=== PATIENT | female | born 1970 | race Caucasian/White ===

== ENCOUNTER 2016-06-25 05:25 | Inpatient (IN) | payer OTHER ==
[2016-06-24 12:12] LABS: ADD SCAN DIFF NO
[2016-06-24 12:20] LABS: ABNORMAL IP MESSAGE 1; BASOPHIL # 0.1 10^3/ul (0.0-0.1); BASOPHILS % 0.9 % (0.0-2.0); EOSINOPHILS % 0.5 % (0.0-7.0); HEMATOCRIT 24.8 % (37.0-47.0); LYMPHOCYTES # 0.8 10^3/ul (0.8-2.9); LYMPHOCYTES % 10.3 % (15.0-51.0); MEAN CORPUSCULAR HEMOGLOBIN 20.3 pg (29.0-33.0); MEAN CORPUSCULAR HGB CONC 28.2 g/dl (32.0-37.0); MEAN CORPUSCULAR VOLUME 71.9 fl (82.0-101.0); MEAN PLATELET VOLUME 10.9 fl (7.4-10.4); MONOCYTE # 0.3 10^3/ul (0.3-0.9); MONOCYTES % 4.2 % (0.0-11.0); NEUTROPHIL # 6.4 10^3/ul (1.6-7.5); NEUTROPHILS % 83.8 % (39.0-77.0); PLATELET COUNT 382 10^3/UL (140-415); RED BLOOD COUNT 3.45 10^6/ul (4.20-5.40); RED CELL DISTRIBUTION WIDTH 26.1 % (11.5-14.5); WHITE BLOOD COUNT 7.7 10^3/ul (4.8-10.8)
[2016-06-24 12:21] LABS: ADD UMIC NO; URINE BILIRUBIN (Dip) NEGATIVE (NEGATIVE); URINE BLOOD (Dip) NEGATIVE (NEGATIVE); URINE COLOR LT. YELLOW (YELLOW); URINE GLUCOSE (Dip) NEGATIVE (NEGATIVE); URINE KETONES (Dip) NEGATIVE (NEGATIVE); URINE LEUKOCYTE ESTERASE (Dip) NEGATIVE (NEGATIVE); URINE NITRITE (Dip) NEGATIVE (NEGATIVE); URINE TOTAL PROTEIN (Dip) NEGATIVE (NEGATIVE); URINE UROBILINOGEN (Dip) 0.2 E.U./dL (0.1-1.0)
[2016-06-24 12:28] LABS: ALBUMIN 3.7 g/dl (3.3-4.9); POTASSIUM 3.6 mmol/L (3.5-5.1)
[2016-06-24 12:30] LABS: CREATININE 0.52 mg/dl (0.44-1.00)
[2016-06-24 12:31] LABS: ALBUMIN/GLOBULIN RATIO 1.19; TOTAL PROTEIN 6.8 g/dl (6.1-8.1)
[2016-06-24 12:32] LABS: CALCIUM 8.4 mg/dl (8.4-10.2)
[2016-06-24 12:42] LABS: INR 0.91; PROTIME 12.3 Sec (12.2-14.2)
[2016-06-24 13:15] LABS: PARTIAL THROMBOPLASTIN TIME 27.2 Sec (25.0-35.0)
[2016-06-24 17:34] VITALS: BMI 22.2
[2016-06-25] VITALS (23 sets, daily range): BP systolic 102–154; BP diastolic 59–95; PULSE 64–94; RESP 8–27; Ht 160 cm; Wt 55.6 kg
[~2016-06-25] VITALS: Ht 160 cm; Wt 55.6 kg
[2016-06-25] MEDS ORDERED: D5-NS + KCL 20 MEQ 1,000 ML IV SCH (05:30)
[2016-06-25] MEDS ORDERED: metroNIDAZOLE 500 MG/NS (PMX) 100 ML IVPB ONE (05:30)
[2016-06-25] MEDS ORDERED: CEFAZOLIN 2 GM/50 ML (PMX) 50 ML IVPB ONE (06:00)
[2016-06-25] MEDS ORDERED: ROCURONIUM 50 MG INJ ONE ×2 (07:00→12:49)
[2016-06-25] MEDS ORDERED: THROMBIN 5000 UNIT VIAL ONE (07:06)
[2016-06-25] MEDS ORDERED: METHYLENE BLUE 10 MG/ML VIAL ONE (07:06)
[2016-06-25] MEDS ORDERED: FERR325C PO (07:28)
--- NOTE | 2016-06-25 07:35 | HPN ---
Date/Time of Note Date/Time of Note DATE: 06/25/16 TIME: 07:34 Interval H&P Admission Note Pt. seen H&P reviewed: No system changes KARLOS CHANCE MD Jun 25, 2016 07:35
[2016-06-25] MEDS ORDERED: MIDAZOLAM 1 MG/ML 2 ML INJ ONE (07:53)
[2016-06-25] MEDS ORDERED: morphine SULFATE/PF (10 MG/10 ML) INJ ONE (07:54)
[2016-06-25] MEDS ORDERED: VASOPRESSIN 20 UNITS INJ ONE (09:14)
[2016-06-25] MEDS ORDERED: NALOXONE (0.4 MG/ML) INJ IV PRN (09:30)
[2016-06-25] MEDS ORDERED: METOCLOPRAMIDE 10 MG INJ IV PRN (09:30)
[2016-06-25] MEDS ORDERED: FENTAnyl 50 MCG/ML VIAL IV PRN (09:30)
[2016-06-25] MEDS ORDERED: MEPERIDINE 25 MG INJ IV PRN (09:30)
[2016-06-25] MEDS ORDERED: ONDANSETRON 4 MG INJ IV PRN ×2 (09:30→20:00)
[2016-06-25] MEDS ORDERED: PROPOFOL 20 ML ONE (12:49)
[2016-06-25] MEDS ORDERED: ONDANSETRON 4 MG INJ ONE ×2 (12:49→13:29)
[2016-06-25] MEDS ORDERED: GLYCOPYRROLATE 0.4 MG INJ ONE (12:49)
[2016-06-25] MEDS ORDERED: LIDOCAINE 2% (SDV) 5 ML INJ ONE (12:49)
[2016-06-25] MEDS ORDERED: CEFAZOLIN 1 GM INJ ONE (12:50)
[2016-06-25] MEDS ORDERED: NEOSTIGMINE 3 MG/3 ML SYRINGE ONE (12:50)
[2016-06-25] MEDS ORDERED: DIPHENHYDRAMINE 50 MG INJ ONE (13:29)
[2016-06-25 13:50] LABS: ADD UMIC YES; URINE BILIRUBIN (Dip) NEGATIVE (NEGATIVE); URINE BLOOD (Dip) NEGATIVE (NEGATIVE); URINE COLOR YELLOW (YELLOW); URINE GLUCOSE (Dip) NEGATIVE (NEGATIVE); URINE KETONES (Dip) NEGATIVE (NEGATIVE); URINE LEUKOCYTE ESTERASE (Dip) NEGATIVE (NEGATIVE); URINE NITRITE (Dip) NEGATIVE (NEGATIVE); URINE TOTAL PROTEIN (Dip) 2+ (NEGATIVE); URINE UROBILINOGEN (Dip) 1.0 E.U./dL (0.1-1.0)
[2016-06-25 14:07] LABS: BACTERIA,URINE MODERATE; MUCUS,URINE FEW
[2016-06-25 14:13] LABS: ADD SCAN DIFF NO
[2016-06-25 14:16] LABS: ABNORMAL IP MESSAGE 1; BASOPHILS % 0.3 % (0.0-2.0); EOSINOPHILS % 0.1 % (0.0-7.0); HEMATOCRIT 27.3 % (37.0-47.0); HEMOGLOBIN 8.3 g/dl (12.0-16.0); LYMPHOCYTES # 0.7 10^3/ul (0.8-2.9); LYMPHOCYTES % 5.5 % (15.0-51.0); MEAN CORPUSCULAR HEMOGLOBIN 23.9 pg (29.0-33.0); MEAN CORPUSCULAR HGB CONC 30.4 g/dl (32.0-37.0); MEAN CORPUSCULAR VOLUME 78.4 fl (82.0-101.0); MEAN PLATELET VOLUME 9.6 fl (7.4-10.4); MONOCYTE # 0.4 10^3/ul (0.3-0.9); MONOCYTES % 3.5 % (0.0-11.0); NEUTROPHIL # 10.8 10^3/ul (1.6-7.5); NEUTROPHILS % 89.9 % (39.0-77.0); PLATELET COUNT 266 10^3/UL (140-415); RED BLOOD COUNT 3.48 10^6/ul (4.20-5.40); RED CELL DISTRIBUTION WIDTH 26.5 % (11.5-14.5)
[2016-06-25 14:28] LABS: ALBUMIN/GLOBULIN RATIO 1.08
[2016-06-25 14:30] LABS: INR 1.08; PT RATIO 1.1
[2016-06-25 14:41] LABS: ALBUMIN 2.6 g/dl (3.3-4.9); BILIRUBIN,INDIRECT 0.4 mg/dl (0-1.1); BILIRUBIN,TOTAL 0.4 mg/dl (0.2-1.3); CALCIUM 7.6 mg/dl (8.4-10.2); CREATININE 0.61 mg/dl (0.44-1.00); POTASSIUM 3.4 mmol/L (3.5-5.1)
[2016-06-25] MEDS: DIPHENHYDRAMINE 50 MG INJ IV PRN ×2 (15:04→16:28)
[2016-06-25] MEDS ORDERED: [UNRECOGNIZED DRUG - REMARK] XX SCH (16:30)
[2016-06-25] MEDS: MEPERIDINE 50 MG INJ IV PRN ×2 (16:42→21:23)
--- NOTE | 2016-06-25 17:44 | CONS ---
DATE OF ADMISSION: 06/25/2016 DATE OF CONSULTATION: 06/25/2016 REQUESTING PHYSICIAN: Juan Rincon MD REASON FOR CONSULTATION: Medical management postop. HISTORY OF PRESENT ILLNESS: This is a very pleasant 45-year-old G7, P2, ectopic 1, 3, misc arriage 1. History of symptomatic fibroid, anemia, who has been having bleeding in the and co ntinuous vaginal bleeding and was seen and evaluated at [facility] and after having the imaging and found to have a 22 week size uterus secondary to fibroid and d iscussing the mode of the treatment, the patient decided to proceed with surgical intervention. Aft er discussing the risks and benefits of the surgery and signing the consent, the patient was taken t o OR for total abdominal hysterectomy with salpingo-oophorectomy and appendectomy. Patient tolerate d the procedure well and was taken to recovery room in stable condition. At this time, patient is a wake, alert, oriented. She denies having any chest pain, shortness of breath, nausea, vomiting, prosper rrhea. No headache, dizziness, lightheadedness. No change in visual acuity, diplopia, photophobia. No abdominal pain. Positive for minimal abdominal pain, no neck pain, no restricted range of yarelis on in upper and lower extremity or any other discomfort. PAST MEDICAL AND SURGICAL HISTORY: As above per HPI. MEDICATIONS: 1. Ferrous sulfate. 2. Flagyl. 3. Levaquin. ALLERGIES: 1. CODEINE. 2. GUAIFENESIN. 3. PENICILLIN. SOCIAL HISTORY: Positive for smoking half a pack of cigarettes per day, drinks alcohol occasionally . No illicit drugs. She lives at home with her father. FAMILY HISTORY: Noncontributory. REVIEW OF SYSTEMS: As above per HPI, otherwise 12 review of systems was found to be negative. PHYSICAL EXAMINATION: VITAL SIGNS: Temperature 99, pulse 80, respiration 19, blood pressure 124/60, oxygen 97% in room ai r. GENERAL APPEARANCE: Patient is lying in bed comfortably without any distress. She is awake, alert, oriented. She is able to answer my questions properly. EYES AND ENT: Conjunctivae and lids are normal. Pupils are normal. Extraocular normal. Hearing g rossly normal. Lips are normal. Oral mucosa is mildly dry. NECK: Supple. Trachea is midline. No lymphadenopathy. RESPIRATORY: Effort is normal. Clear to auscultate bilaterally. CARDIOVASCULAR: Normal S1, S2. Regular rhythm and rate. No murmur, no bruits, no edema. Peripher al pulses, radial pulses palpable. Cap refill is normal. CHEST: Normal expansion of thorax during inspiration. ABDOMEN: Soft, nontender, not distended. Bowel sounds present. No guarding, no rebound. Surgical site is dry and clean. No evidence of hematoma or bleeding. GENITOURINARY: Deferred. MUSCULOSKELETAL: Upper and lower extremities within normal limits. Full range of motion. NEUROLOGIC: Cranial nerves II through XII are grossly intact. PSYCHIATRIC: She is awake, alert, oriented. LABORATORY WORK: WBC 12, hemoglobin 8.3, hematocrit 27.3, platelets 266. Sodium 140, potassium 3.4 , chloride 107, bicarbonate 24, BUN 7, creatinine 0.61, glucose 104. Albumin 2.0, otherwise LFTs al l within normal limits. PT 14, INR 1.1. ASSESSMENT AND PLAN: 1. Uterine fibroid. The patient is status post total abdominal hysterectomy with salpingo-oophorec svetlana. Continue post-surgical care. 2. Anemia, likely secondary to continuous menorrhagia secondary to uterine fibroids. The patient i s status post transfusion of 3 units of packed red blood cells. Follow hemoglobin and hematocrit q. 8h. Follow up iron panel and treat accordingly. 3. History of nicotine dependency. Started the patient on nicotine patch. 4. Leukocytosis. This is likely reactive postoperatively. The patient was treated with cefazolin during the course of surgery. At this time, the patient has been placed on Levaquin. Follow CBC in a.m. 5. For deep vein thrombosis prophylaxis, on sequential compression devices follow general surgery r ecommendation for start of pharmacology DVT prophylaxis. 6. For gastrointestinal prophylaxis, place the patient on Protonix. 7. We will continue to monitor patient closely. Further recommendations, management and treatment as per clinical course. Dictated By: ARMANDO ALEXIS/JULIA Conf#: [id number] DID#: [id number]
[2016-06-25] MEDS: LEVOFLOXACIN 750MG/D5W (PMX) 150 ML IVPB SCH (17:59)
[2016-06-25] MEDS: D5-LR + KCL 20 MEQ 1,000 ML IV SCH (23:00)
[2016-06-26] VITALS (8 sets, daily range): BP systolic 120–141; BP diastolic 59–76; PULSE 98–103; RESP 18–19
[2016-06-26] MEDS ORDERED: DIPHENHYDRAMINE 50 MG INJ IV PRN
[2016-06-26] MEDS: MEPERIDINE 50 MG INJ IV PRN ×7 (04:05→23:53)
[2016-06-26] MEDS: PANTOPRAZOLE (EC) 40 MG TAB PO SCH (05:29)
[2016-06-26 05:52] LABS: ADD SCAN DIFF NO
[2016-06-26 06:11] LABS: ABNORMAL IP MESSAGE 1; BASOPHILS % 0.2 % (0.0-2.0); EOSINOPHILS % 0.1 % (0.0-7.0); HEMOGLOBIN 8.2 g/dl (12.0-16.0); LYMPHOCYTES # 0.7 10^3/ul (0.8-2.9); LYMPHOCYTES % 4.3 % (15.0-51.0); MEAN CORPUSCULAR HEMOGLOBIN 23.4 pg (29.0-33.0); MEAN CORPUSCULAR HGB CONC 30.4 g/dl (32.0-37.0); MEAN CORPUSCULAR VOLUME 76.9 fl (82.0-101.0); MEAN PLATELET VOLUME 10.4 fl (7.4-10.4); MONOCYTE # 0.3 10^3/ul (0.3-0.9); MONOCYTES % 1.8 % (0.0-11.0); NEUTROPHILS % 93.2 % (39.0-77.0); PLATELET COUNT 288 10^3/UL (140-415); RED BLOOD COUNT 3.51 10^6/ul (4.20-5.40); RED CELL DISTRIBUTION WIDTH 26.5 % (11.5-14.5); WHITE BLOOD COUNT 16.1 10^3/ul (4.8-10.8)
[2016-06-26 06:13] LABS: INR 1.19; PROTIME 15.2 Sec (12.2-14.2); PT RATIO 1.2
[2016-06-26 06:16] LABS: ALBUMIN 2.7 g/dl (3.3-4.9); IRON 11 ug/dl (35-150); POTASSIUM 3.2 mmol/L (3.5-5.1)
[2016-06-26 06:18] LABS: CREATININE 0.63 mg/dl (0.44-1.00)
[2016-06-26 06:19] LABS: ALBUMIN/GLOBULIN RATIO 1.08; BILIRUBIN,INDIRECT 0.7 mg/dl (0-1.1); BILIRUBIN,TOTAL 0.7 mg/dl (0.2-1.3); CALCIUM 7.8 mg/dl (8.4-10.2); TOTAL PROTEIN 5.2 g/dl (6.1-8.1)
[2016-06-26 06:26] LABS: TOTAL IRON BINDING CAPACITY 324 ug/dl (241-421)
[2016-06-26] MEDS: NICOTINE (14 MG/24 HR) PATCH TRANSDERM SCH (08:50)
[2016-06-26] MEDS: D5-LR + KCL 20 MEQ 1,000 ML IV SCH ×2 (11:41→14:05)
--- NOTE | 2016-06-26 16:59 | PN ---
Date/Time of Note Date/Time of Note DATE: 06/26/16 TIME: 16:57 Assessment/Plan VTE Prophylaxis VTE Prophylaxis Intervention: SCD's Lines/Catheters IV C[facility] Type [facility]from [facility]): Peripheral IV Assessment/Plan Chief Complaint/Hosp Course ASSESSMENT AND PLAN: 1. Uterine fibroid. The patient is status post total abdominal hysterectomy with salpingo-oophorectomy. Continue post-surgical care. 2. Anemia, likely secondary to continuous menorrhagia secondary to uterine fibroids. The patient is status post transfusion of 3 units of packed red blood cells. Stable, start ferrous sulfate 3. History of nicotine dependency. Started the patient on nicotine patch. 4. Leukocytosis. This is likely reactive postoperatively. The patient was treated with cefazolin during the course of surgery. At this time, the patient has been placed on Levaquin. Follow CBC in a.m. 5. For deep vein thrombosis prophylaxis, on sequential compression devices follow general surgery recommendation for start of pharmacology DVT prophylaxis. 6. For gastrointestinal prophylaxis, place the patient on Protonix. We will continue to monitor patient closely. Further recommendations, management and treatment as per clinical course. Problems: Subjective 24 Hr Interval Summary Free Text/Dictation Patient complains of having abdominal discomfort No nausea vomiting diarrhea Denies of any headache or dizziness Exam/Review of Systems Vital Signs Vitals Vital Signs Date Time Temp Pulse Resp B/P Pulse Ox O2 Delivery O2 Flow Rate FiO2 06/26/16 16:23 98.7 18 128/76 98 Room Air 06/26/16 10:41 99 06/25/16 14:17 2.0 Intake and Output 06/25/16 06/25/16 06/26/16 15:00 23:00 07:00 Intake Total 2000 ml 900 ml Output Total 600 ml 300 ml 450 ml Balance 1400 ml -300 ml 450 ml Exam General: The patient is well-developed, Not in acute distress. HEENT: Atraumatic, normocephalic. The pupils are equal and round . Neck: Supple with full range of motion. Chest: Normal expansion of the thorax during inspiration Lungs: Clear to auscultation bilaterally Heart: Normal S1-S2, Regular rhythm and rate. Abdomen: Soft , moderate tenderness at surgical site, nondistended , bowel sounds are present. Extremities: Normal to inspection, no edema no cyanosis Neurologic: Normal mental status,The patient is awake, alert and oriented . Results Result Diagram: 06/26/16 0501 06/26/16 0501 Results 24 hrs Laboratory Tests Test 06/26/16 05:01 06/26/16 05:09 White Blood Count 16.1 #H Red Blood Count 3.51 L Hemoglobin 8.2 L Hematocrit 27.0 L Mean Corpuscular Volume 76.9 L Mean Corpuscular Hemoglobin 23.4 L Mean Corpuscular Hemoglobin Concent 30.4 L Red Cell Distribution Width 26.5 H Platelet Count 288 Mean Platelet Volume 10.4 Neutrophils % 93.2 H Lymphocytes % 4.3 L Monocytes % 1.8 Eosinophils % 0.1 Basophils % 0.2 Nucleated Red Blood Cells % 0.0 Neutrophils # 15.0 H Lymphocytes # 0.7 L Monocytes # 0.3 Eosinophils # 0.0 Basophils # 0.0 Nucleated Red Blood Cells # 0.0 Prothrombin Time 15.2 H Prothrombin Time Ratio 1.2 INR International Normalized Ratio 1.19 Sodium Level 137 Potassium Level 3.2 L Chloride Level 101 Carbon Dioxide Level 27 Anion Gap 12 Blood Urea Nitrogen 5 L Creatinine 0.63 Glucose Level 129 Calcium Level 7.8 L Magnesium Level 1.3 L Iron Level 11 L Total Iron Binding Capacity 324 Percent Iron Saturation 3 L Total Bilirubin 0.7 Direct Bilirubin 0.00 Indirect Bilirubin 0.7 Aspartate Amino Transf (AST/SGOT) 35 Alanine Aminotransferase (ALT/SGPT) 24 Alkaline Phosphatase 56 Total Protein 5.2 L Albumin 2.7 L Globulin 2.50 Albumin/Globulin Ratio 1.08 Ferritin 12.2 Medications Medications Current Medications Naloxone HCl 0.2 mg 0.2 mg Q2M PRN IV FOR RESP RATE 8 OR LESS; Start 06/25/16 at 09:30 Potassium Cl/ Dextrose/Lact Ringer's (D5-Lr + KCl 20 Meq) 1,000 ml @ 60 mls/hr [id number] IV Last administered on 06/26/16 11:41; Admin Dose 60 MLS/HR; Start at 16:00 Ondansetron HCl 4 mg 4 mg Q6H PRN IV NAUSEA AND/OR VOMITING; Start 06/25/16 at 20:00 Levofloxacin/ Dextrose (Levaquin 750 Mg/ D5W 150 ml (Pmx)) 150 ml @ 100 mls/hr Q24H IVPB Last administered on 06/25/16 17:59; Admin Dose 100 MLS/HR; Start at 17:30; Stop 06/26/16 at 18:59 Meperidine HCl (Demerol) 50 mg Q3H PRN IV PAIN Last administered on 06/26/16 13:50; Admin Dose 50 MG; Start 06/25/16 at 20:00 Miscellaneous Information 1 ea NOTE XX ; Start 06/25/16 at 16:30 Nicotine (Nicoderm 14 Mg/ 24hr) 1 patch DAILY TRANSDERM Last administered on 08:50; Admin Dose 1 PATCH; Start 06/26/16 at 09:00 Pantoprazole (Protonix Tab) 40 mg DAILY@06 PO Last administered on 06/26/16 05 :29; Admin Dose 40 MG; Start 06/26/16 at 06:00 Diphenhydramine HCl (Benadryl) 25 mg Q6H PRN IV PRURITUS Last administered on 00:01; Admin Dose 25 MG; Start 06/26/16 at 00:00 Potassium Chloride (Klor-Con 20) 40 meq Q4H PO ; Start 06/26/16 at 17:00; Stop 06/26/16 at 21:01 ARMANDO GONZALEZ MD Jun 26, 2016 16:59
[2016-06-26] MEDS: POTASSIUM CHLORIDE (SR) 20 MEQ TAB PO SCH ×2 (17:22→20:24)
[2016-06-26] MEDS: LEVOFLOXACIN 750MG/D5W (PMX) 150 ML IVPB SCH (17:45)
[2016-06-26] MEDS ORDERED: LEVOFLOXACIN 500MG/D5W (PMX) 100 ML IVPB SCH (18:00)
[2016-06-26] MEDS ORDERED: MAGNESIUM SULFATE 3 GM in SOD CHLORIDE 0.9% 100 ML IVPB ONE (18:00)
--- NOTE | 2016-06-26 21:04 | PN ---
Date/Time of Note Date/Time of Note DATE: 06/26/16 TIME: 20:57 Assessment/Plan VTE Prophylaxis VTE Prophylaxis Intervention: SCD's Lines/Catheters IV Catheter Type (from Nrsg): Peripheral IV Assessment/Plan Chief Complaint/Hosp Course fibroids, hydroureter, abnormal vasculature Problems: Assessment/Plan A- doing reasonably well P- mobilize and possibly discharge a.m. Subjective 24 Hr Interval Summary Free Text/Dictation S- minimal pain but questionable flatus and minimally OOB O- Resp - clear CVS NSR Abd- clean and NT Ext NT no edema A- doing reasonably well P- mobilize and possibly discharge a.m. Exam/Review of Systems Vital Signs Vitals Vital Signs Date Time Temp Pulse Resp B/P Pulse Ox O2 Delivery O2 Flow Rate FiO2 06/26/16 16:23 98.7 18 128/76 98 Room Air 06/26/16 10:41 99 06/25/16 14:17 2.0 Intake and Output 06/25/16 06/25/16 06/26/16 15:00 23:00 07:00 Intake Total 2000 ml 900 ml Output Total 600 ml 300 ml 450 ml Balance 1400 ml -300 ml 450 ml Results Result Diagram: 06/26/16 0501 06/26/16 0501 Results 24 hrs Laboratory Tests Test 06/26/16 05:01 06/26/16 05:09 White Blood Count 16.1 #H Red Blood Count 3.51 L Hemoglobin 8.2 L Hematocrit 27.0 L Mean Corpuscular Volume 76.9 L Mean Corpuscular Hemoglobin 23.4 L Mean Corpuscular Hemoglobin Concent 30.4 L Red Cell Distribution Width 26.5 H Platelet Count 288 Mean Platelet Volume 10.4 Neutrophils % 93.2 H Lymphocytes % 4.3 L Monocytes % 1.8 Eosinophils % 0.1 Basophils % 0.2 Nucleated Red Blood Cells % 0.0 Neutrophils # 15.0 H Lymphocytes # 0.7 L Monocytes # 0.3 Eosinophils # 0.0 Basophils # 0.0 Nucleated Red Blood Cells # 0.0 Prothrombin Time 15.2 H Prothrombin Time Ratio 1.2 INR International Normalized Ratio 1.19 Sodium Level 137 Potassium Level 3.2 L Chloride Level 101 Carbon Dioxide Level 27 Anion Gap 12 Blood Urea Nitrogen 5 L Creatinine 0.63 Glucose Level 129 Calcium Level 7.8 L Magnesium Level 1.3 L Iron Level 11 L Total Iron Binding Capacity 324 Percent Iron Saturation 3 L Total Bilirubin 0.7 Direct Bilirubin 0.00 Indirect Bilirubin 0.7 Aspartate Amino Transf (AST/SGOT) 35 Alanine Aminotransferase (ALT/SGPT) 24 Alkaline Phosphatase 56 Total Protein 5.2 L Albumin 2.7 L Globulin 2.50 Albumin/Globulin Ratio 1.08 Ferritin 12.2 Medications Medications Current Medications Naloxone HCl 0.2 mg 0.2 mg Q2M PRN IV FOR RESP RATE 8 OR LESS; Start 06/25/16 at 09:30 Potassium Cl/ Dextrose/Lact Ringer's (D5-Lr + KCl 20 Meq) 1,000 ml @ 60 mls/hr [id number] IV Last administered on 06/26/16 11:41; Admin Dose 60 MLS/HR; Start at 16:00 Ondansetron HCl (Zofran Inj) 4 mg Q6H PRN IV NAUSEA AND/OR VOMITING; Start at 20:00 Meperidine HCl (Demerol) 50 mg Q3H PRN IV PAIN Last administered on 06/26/16 20:26; Admin Dose 50 MG; Start 06/25/16 at 20:00 Miscellaneous Information 1 ea NOTE XX ; Start 06/25/16 at 16:30 Nicotine (Nicoderm 14 Mg/ 24hr) 1 patch DAILY TRANSDERM Last administered on 08:50; Admin Dose 1 PATCH; Start 06/26/16 at 09:00 Pantoprazole (Protonix Tab) 40 mg DAILY@06 PO Last administered on 06/26/16 05 :29; Admin Dose 40 MG; Start 06/26/16 at 06:00 Diphenhydramine HCl (Benadryl) 25 mg Q6H PRN IV PRURITUS Last administered on 00:01; Admin Dose 25 MG; Start 06/26/16 at 00:00 Potassium Chloride 40 meq 40 meq Q4H PO Last administered on 06/26/16 20:24; Admin Dose 40 MEQ; Start 06/26/16 at 17:00; Stop 06/26/16 at 21:01 Magnesium Sulfate/ Sodium Chloride (Magnesium Sulfate/NS) 106 ml @ 35.333 mls/ hr ONCE ONCE IVPB Last administered on 06/26/16 19:56; Admin Dose 35.333 MLS/ HR; Start 06/26/16 at 18:00; Stop 06/26/16 at 20:59 Metronidazole (Flagyl) 500 mg Q8 PO ; Start 06/26/16 at 22:00 Ferrous Sulfate (Ferrous Sulfate (Ec)) 325 mg DAILY PO ; Start 06/27/16 at 09:00 Ascorbic Acid (Vitamin C) 500 mg DAILY PO ; Start 06/27/16 at 09:00 KARLOS CHANCE MD Jun 26, 2016 21:04
[2016-06-26] MEDS: metroNIDAZOLE 500 MG TAB PO SCH (21:20)
--- NOTE | 2016-06-26 22:41 | OPR ---
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 Rincon Insole Beveler: Dr. Bah Anesthesia: General Indication for Procedure: The patient is a 45 -year old female with a large pelvic/abdominal mass consistent with fibroids per history and examination and pelvic/abdominal pain with a negative EMB for whom, after considering all options with risks and benefits a laparoscopy was planned with a total or subracervical laparoscopic hysterectomy with possible staging and USO Name: [facility] or BSO or laparotomy if needed. Findings and Summary The patient was laparoscoped and noted to have findings consistent of 22-24 week fibroids and the right adnexia and appendix inseparable from the uterus with the left adnexia and both adnexia densely adherent to the sidewalls and therefore requiring a ureteral dissection and repositioning bilaterally while gaining access to the uterine arteries for hemostasis for vascular and anatomic reasons. While completing the ureteral dissections and gaining access to the uterine arteries anatomic issues and hypervascularity and anatomy precluding access to the lower uterine segment necessitated that the uterine arteries be dissected and clipped laterally, adjacent to the hypogastric arteries bilaterally. The total laparoscopic hysterectomy/LSO and appendectomy was then completed uneventfully. Procedure: After being prepped and draped in the usual manner an EEA sizer and pneumo- occluder was inserted vaginally was placed against the cervix to allow the option of a total or supracervical hysterectomy as the fibroids were very low. A 5-millimeter trocar was then placed cephlad to the umbilicus without incident due to the large fibroids. Subsequently, we insufflated to 15 mm Hg and placed two 5-millimeter trocars laterally and anterior enterolysis was carried out with sharp dissection although the adhesions were very dense. In the process the small bowel was mobilized and subsequently a 12-millimeter trocar suprapubically and a 5-millimeter trocar periumbilically. At this time any pelvic adhesions were lysed with sharp dissection and an Omni if not adjacent to serosa. Subsequently we explored and noted pelvic findings consistent with a 22-24 week fibroids and the right adnexia and appendix inseparable from the uterus with the left adnexia and both adnexia densely adherent to the sidewalls and therefore requiring a ureteral dissection and repositioning bilaterally while gaining access to the uterine Name: [facility] arteries due to obscuring of the retroperitoneal anatomy. Initially vasopressin was injected into the fundus, a corkscrew was placed and attached to the Jr Arm and the right round ligament was cauterized and transected with the Thunderbeat and the retroperitoneal spaced opened parallel to the IP ligament and laterally with the same devise and Omni and the appendix and adnexia were both noted to be densely adherent to the sidewall and the lower uterine segment, anatomy precluding access to the lower uterine segment for hemostasis. The ureter was identified and because of pelvic scar tissue and the large fibroids and adnexia adherent to the sidewall required a specific dissection and repositioning. The ureter was bluntly dissected away from the broad ligament with an Omni and Gyrus bipolar cutting forceps, and carefully repositioned lateral to the broad ligament and pathology and expanded lower uterine segment with fibroids. The process was continued distally due to some element of additional stricture. Due to vascularity and ongoing oozing as well as the large uterus with anatomy precluding access to the lower uterine segment , the uterine artery was identified and clipped lateral to the ureter, immediately distal to the branching of the hypogastric and at the bifurcation of the hypogastric; salvaging both observed superior and inferior vesicle while controlling the entire uterine with associated collateral branches. Subsequently an appendectomy was performed. Initially the base of the appendix was dissected away from the cecum with an Omni. Subsequently, the appendix was from the cecum with and endo-PARAS stapler. We then divided the appendiceal mesentery with a Gyrus bipolar cutting forceps and the Thunderbeat without incident.Hence, space was developed in the broad ligament and the triple IP-ligament was transected with a Thunderbeat. At this time the sigmoid was dissected from the sidewall with sharp dissection and the Omni if not adjacent to serosa. The left round ligament was transected with the Thunderbeat and the retroperitoneal spaced opened parallel to the IP ligament and laterally with the same devise and Omni. The ureter was identified and because of similar anatomic issues to the contralateral side required a specific dissection and repositioning. The ureter was bluntly dissected away from the broad ligament bilaterally with an Omni and endo-dissector, and carefully Name: [facility] repositioned lateral to the broad ligament and scar tissue with inflammation and with adjacent adnexia. Similarly, due to vascularity and ongoing oozing as well as the adjacent adherent adnexia and massive fibroid uterus and anatomy precluding access to the lower uterine segment, the uterine artery was identified and clipped lateral to the ureter, immediately distal to the branching of the hypogastric and at the bifurcation of the hypogastric; salvaging both observed superior and inferior vesicle while controlling the entire uterine with associated collateral branches. Subsequently, space was developed in the broad ligament and the IP ligament was transected with a Thunderbeat. We then adjusted the corkscrew was placed through the 12-mm suprapubic trocar to manipulate the uterus allowing development or the bladder flap uneventfully with the Omni and blunt dissection. The right uterine artery was transected with a Thunderbeat perpendicular to the distal lower uterine segment and the Cardinal ligament and utero-sacral ligament were both transected with an Omni and Thunderbeat parallel to the lower uterine segment and cervix. An identical series of steps were taken on the contralateral side. Additional efforts were required to safely develop the cul-de-sac with sharp dissection laterally and the integrity of the sigmoid was confirmed with the EEA sizer with an endo-PARAS used to separate the posterior lower uterine segment from the sigmoid colon. The anterior and posterior colpotomies were accomplished due to cervical involvement by very low fibroid precluding a supracervical hysterectomy, with a Thunderbeat instrument anteriorly and posteriorly, and continued around the sides as the specimen was removed through the vagina uneventfully using a Thunderbeat leaving minimal cervix. The vagina was closed with Interrupted 0- Vicryl suture and continuous 2-0 Stratafix. The 12-millimeter trocar site was minimally extended to 4-6 cm midline to a minilaparotomy with sharp dissection and an electrocautery and uterus was then removed with morcellation and the adnexia and appendix removed separately using Lisandro clamps and a scalpel for morcellation, with all tissue accounted for. The incision was partly closed with interrupted 0- Vicryl suture, after which the 12 -millimeter trocar was reinserted. After irrigating and assuring hemostasis the 12 millimeter trocar was removed and the fascia was closed with 0-vicryl using an endo-close devise. The Name: [facility] gas was removed and the skin of all sites then closed with subcutaneous 3-0 Vicryl suture for the 12-millimeter trocar sites and 4-0 Plain Gut for all skin. The EBL was 200cc and the patient tolerated the procedure well and left the OR in good condition. She was transfused because the preop Hgb was 7.0 Karlos Rincon M.D. KARLOS RINCON MD Jun 26, 2016 22:40
[2016-06-27] VITALS: BP 125/58; PULSE 98; RESP 18
[2016-06-27 04:00] VITALS: BP 118/62; PULSE 94; RESP 18
[2016-06-27] MEDS: D5-LR + KCL 20 MEQ 1,000 ML IV SCH (05:00)
[2016-06-27] MEDS: metroNIDAZOLE 500 MG TAB PO SCH ×3 (05:30→22:15)
[2016-06-27] MEDS: PANTOPRAZOLE (EC) 40 MG TAB PO SCH (05:31)
[2016-06-27] MEDS: MEPERIDINE 50 MG INJ IV PRN (05:32)
[2016-06-27 06:12] LABS: ADD SCAN DIFF NO
[2016-06-27 06:14] LABS: ABNORMAL IP MESSAGE 1; BASOPHILS % 0.2 % (0.0-2.0); EOSINOPHILS # 0.1 10^3/ul (0.0-0.5); EOSINOPHILS % 0.2 % (0.0-7.0); HEMATOCRIT 34.1 % (37.0-47.0); HEMOGLOBIN 10.2 g/dl (12.0-16.0); LYMPHOCYTES # 0.8 10^3/ul (0.8-2.9); LYMPHOCYTES % 3.4 % (15.0-51.0); MEAN CORPUSCULAR HEMOGLOBIN 23.1 pg (29.0-33.0); MEAN CORPUSCULAR HGB CONC 29.9 g/dl (32.0-37.0); MEAN CORPUSCULAR VOLUME 77.3 fl (82.0-101.0); MEAN PLATELET VOLUME 10.5 fl (7.4-10.4); MONOCYTE # 0.7 10^3/ul (0.3-0.9); MONOCYTES % 3.2 % (0.0-11.0); NEUTROPHIL # 20.5 10^3/ul (1.6-7.5); NEUTROPHILS % 92.2 % (39.0-77.0); PLATELET COUNT 272 10^3/UL (140-415); RED BLOOD COUNT 4.41 10^6/ul (4.20-5.40); RED CELL DISTRIBUTION WIDTH 27.5 % (11.5-14.5); WHITE BLOOD COUNT 22.2 10^3/ul (4.8-10.8)
[2016-06-27 06:40] LABS: CALCIUM 8.1 mg/dl (8.4-10.2); CREATININE 0.6 mg/dl (0.44-1.00)
[2016-06-27 06:41] LABS: MAGNESIUM 2.3 mg/dl (1.7-2.5)
[2016-06-27] MEDS ORDERED: IOHEXOL 14.3 MG(I)/ML (ADULT) BTL PO ONE (08:00)
[2016-06-27] MEDS ORDERED: MEPERIDINE 50 MG INJ IV PRN (08:00)
[2016-06-27] MEDS ORDERED: LORAZEPAM 2 MG INJ IV ONE (08:00)
[2016-06-27 08:25] VITALS: BP 117/57; PULSE 94; RESP 21
[2016-06-27] MEDS ORDERED: metroNIDAZOLE 500 MG/NS (PMX) 100 ML IVPB SCH (08:30)
[2016-06-27] MEDS: ASCORBIC ACID 500 MG TAB PO SCH (09:00)
[2016-06-27] MEDS: FERROUS SULFATE (EC) 325 MG TAB PO SCH (09:00)
[2016-06-27] MEDS: NICOTINE (14 MG/24 HR) PATCH TRANSDERM SCH (09:00)
[2016-06-27] MEDS ORDERED: LEVOFLOXACIN 750MG/D5W (PMX) 150 ML IVPB SCH (10:00)
[2016-06-27] MEDS ORDERED: SOD CHLORIDE 0.9% 100 ML ONE (11:50)
[2016-06-27] MEDS ORDERED: IOHEXOL 300MG/ML 150 ML BTL ONE (11:50)
--- NOTE | 2016-06-27 12:48 | RADRPT ---
PROCEDURE: CT Abdomen and Pelvis with and without contrast. CLINICAL INDICATION: Abdominal pain. TECHNIQUE: CT scan of the abdomen and pelvis with contrast was performed utilizing axial tomograph ic images from the domes the diaphragm to the symphysis pubis. The patient was scanned pre and post uncomplicated intravenous administration of 100 cc of Isovue 300. Coronal and sagittal reformatte d images were obtained from the axial source images. Images were reviewed on a high-resolution PACS workstation. The total exam CTDI equals 5.63, 5.14 mGy and the total exam DLP equals 613.23 mGy-cm. One or more of the following dose reduction techniques were used: Automated exposure control, adju stment of the mA and / or kV according to patient size, or use of iterative reconstruction technique . COMPARISON: None. FINDINGS: The lung bases demonstrate small bilateral pleural effusions with compressive atelectasis. The gustavo er is normal in size and contour. No focal intrahepatic masses are identified. There is no intra o r extrahepatic biliary dilatation. The gallbladder is unremarkable by CT criteria. The spleen, coronado creas, and adrenal glands are unremarkable. The kidneys are symmetric in size and demonstrate normal enhancement. No hydronephrosis or hydroure ter is seen. There is a 1.7 cm cyst within the upper pole left kidney There is a 4 mm nonobstructing calculus within the lower pole of the right kidney. The urinary bladder is unremarkable. There are multiple mildly distended fluid-filled loops of small bowel. Air and stool is seen within the proximal colon. No bowel wall thickening is identified. There are postoperative changes from appendectomy and hysterectomy. There is small free fluid in the pelvis with small foci of air. Ther e is diffuse pelvic soft tissue stranding. Small foci of air is seen throughout the pelvis. No retr operitoneal, mesenteric, or inguinal adenopathy is identified. The abdominal aorta and major branching vessels are normal in caliber. Atherosclerotic calcificatio ns are seen within the inferior abdominal aorta and proximal iliac arteries. The osseous structures are unremarkable. There recent postsurgical changes of the lower anterior abdominal wall with soft tissue stranding and small foci of air. IMPRESSION: 1. Small volume free fluid in the pelvis with scattered small foci of air and diffuse pelvic soft tissue edema. Findings may be postoperative in etiology. A superimposed infectious process is diff icult to exclude on this examination. No mature abscess is seen. 2. Postsurgical changes from hysterectomy, bilateral salpingo-oophorectomy and appendectomy. 3. Multiple mildly distended fluid-filled loops of small bowel, likely reflecting ileus. Small bow el obstruction is not excluded, but considered less likely. 4. Nonobstructing 4 mm calculus within the lower pole of the right kidney. 5. Mild arterial atherosclerosis. 6. Small bilateral pleural effusions. RPTAT: HH .Lana Carrero MD, MD Date Time Electronically viewed and signed by .Lana Carrero MD, MD on 06/27/2016 12:48 .G/
--- NOTE | 2016-06-27 13:14 | PDOCDIS ---
Discharge Instructions CONDITION Patient Condition: Stable HOME CARE INSTRUCTIONS: Special Diet: soft and advance as tolerated ACTIVITY: Activity Restrictions: Slowly Increase Activity Rest between Activity Avoid heavy lifting Avoid Heavy Housework Activity Restrictions Comment: Avoid lifting any object greater than 15 pounds 4 weeks FOLLOW UP/APPOINTMENTS Appointments Follow up with [employer] oncologist as outpatient ARMANDO GONZALEZ MD Jun 27, 2016 13:14
[2016-06-27] MEDS ORDERED: KETOROLAC 15 MG INJ IM STA (13:33)
--- NOTE | 2016-06-27 13:33 | PN ---
Date/Time of Note Date/Time of Note DATE: 06/27/16 TIME: 13:31 Assessment/Plan VTE Prophylaxis VTE Prophylaxis Intervention: SCD's Lines/Catheters [facility] Peripheral IV Assessment/Plan Chief Complaint/Hosp Course ASSESSMENT AND PLAN: 1. Uterine fibroid. The patient is status post total abdominal hysterectomy with salpingo-oophorectomy. Continue post-surgical care. 2. Anemia, likely secondary to continuous menorrhagia secondary to uterine fibroids. The patient is status post transfusion of 3 units of packed red blood cells. Stable, continue ferrous sulfate 3. History of nicotine dependency. Started the patient on nicotine patch. 4. Leukocytosis. This is likely reactive postoperatively. The patient was treated with cefazolin during the course of surgery. Continue Levaquin. Follow CBC in a.m. 5. Ileus. Continue Levaquin and start Flagyl 6. For deep vein thrombosis prophylaxis, on sequential compression devices follow general surgery recommendation for start of pharmacology DVT prophylaxis. 7. For gastrointestinal prophylaxis, place the patient on Protonix. We will continue to monitor patient closely. Further recommendations, management and treatment as per clinical course. Problems: Subjective 24 Hr Interval Summary Free Text/Dictation Patient had abdominal discomfort throughout the night This morning abdominal discomfort has mildly improved and she has been able to ambulate Tolerating oral intake Exam/Review of Systems Vital Signs Vitals Vital Signs Date Time Temp Pulse Resp B/P Pulse Ox O2 Delivery O2 Flow Rate FiO2 06/27/16 08:25 99.5 94 21 117/57 97 Room Air 06/25/16 14:17 2.0 Intake and Output 06/26/16 06/26/16 06/27/16 14:59 22:59 06:59 Intake Total 400 ml 976 ml 1080 ml Output Total 900 ml 1500 ml Balance 400 ml 76 ml -420 ml Exam General: The patient is well-developed, Not in acute distress. HEENT: Atraumatic, normocephalic. The pupils are equal and round . Neck: Supple with full range of motion. Chest: Normal expansion of the thorax during inspiration Lungs: Clear to auscultation bilaterally Heart: Normal S1-S2, Regular rhythm and rate. Abdomen: Soft , minimally tender at surgical site, moderately distended , bowel sounds are present. Extremities: Normal to inspection, no edema no cyanosis Neurologic: Normal mental status,The patient is awake, alert and oriented . Results Result Diagram: 06/27/16 0512 06/27/16 0512 Results 24 hrs Laboratory Tests Test 06/27/16 05:12 White Blood Count 22.2 #H Red Blood Count 4.41 # Hemoglobin 10.2 #L Hematocrit 34.1 #L Mean Corpuscular Volume 77.3 L Mean Corpuscular Hemoglobin 23.1 L Mean Corpuscular Hemoglobin Concent 29.9 L Red Cell Distribution Width 27.5 H Platelet Count 272 Mean Platelet Volume 10.5 H Neutrophils % 92.2 H Lymphocytes % 3.4 L Monocytes % 3.2 Eosinophils % 0.2 Basophils % 0.2 Nucleated Red Blood Cells % 0.0 Neutrophils # 20.5 H Lymphocytes # 0.8 Monocytes # 0.7 Eosinophils # 0.1 Basophils # 0.0 Nucleated Red Blood Cells # 0.0 Sodium Level 136 Potassium Level 4.0 Chloride Level 102 Carbon Dioxide Level 25 Anion Gap 13 Blood Urea Nitrogen 2 L Creatinine 0.60 Glucose Level 122 Calcium Level 8.1 L Magnesium Level 2.3 # Medications Medications Current Medications Naloxone HCl 0.2 mg 0.2 mg Q2M PRN IV FOR RESP RATE 8 OR LESS; Start 06/25/16 at 09:30 Potassium Cl/ Dextrose/Lact Ringer's (D5-Lr + KCl 20 Meq) 1,000 ml @ 60 mls/hr [id number] IV Last administered on 06/27/16 05:00; Admin Dose 60 MLS/HR; Start at 16:00 Ondansetron HCl (Zofran Inj) 4 mg Q6H PRN IV NAUSEA AND/OR VOMITING; Start at 20:00 Miscellaneous Information 1 ea NOTE XX ; Start 06/25/16 at 16:30 Nicotine (Nicoderm 14 Mg/ 24hr) 1 patch DAILY TRANSDERM Last administered on 08:50; Admin Dose 1 PATCH; Start 06/26/16 at 09:00 Pantoprazole (Protonix Tab) 40 mg DAILY@06 PO Last administered on 06/27/16 05 :31; Admin Dose 40 MG; Start 06/26/16 at 06:00 Diphenhydramine HCl (Benadryl) 25 mg Q6H PRN IV PRURITUS Last administered on 00:01; Admin Dose 25 MG; Start 06/26/16 at 00:00 Metronidazole (Flagyl) 500 mg Q8 PO Last administered on 06/27/16 05:30; Admin Dose 500 MG; Start 06/26/16 at 22:00 Ferrous Sulfate (Ferrous Sulfate (Ec)) 325 mg DAILY PO ; Start 06/27/16 at 09:00 Ascorbic Acid (Vitamin C) 500 mg DAILY PO ; Start 06/27/16 at 09:00 Meperidine HCl 75 mg 75 mg Q3H PRN IV Pain; Start 06/27/16 at 08:00 Levofloxacin/ Dextrose 150 ml @ 100 mls/hr Q24H IVPB Last administered on 06/27 11:31; Admin Dose 100 MLS/HR; Start 06/27/16 at 10:00 Metronidazole (Flagyl 500 Mg (Pmx)) 100 ml @ 100 mls/hr Q8 IVPB Last administered on 06/27/16 08:38; Admin Dose 100 MLS/HR; Start 06/27/16 at 08:30 ARMANDO GONZALEZ MD Jun 27, 2016 13:33
[2016-06-27] MEDS: OXYCODONE/ACETAMINOPHEN (5/325) TAB PO PRN ×3 (16:51→23:15)
--- NOTE | 2016-06-27 18:35 | PN ---
Date/Time of Note Date/Time of Note DATE: 06/27/16 TIME: 18:31 Assessment/Plan VTE Prophylaxis VTE Prophylaxis Intervention: SCD's Lines/Catheters IV Catheter Type (from [facility]rs[facility]): Peripheral IV Assessment/Plan Chief Complaint/Hosp Course fibroids, hydroureter, abnormal vasculature Problems: Assessment/Plan A- doing reasonably well P- mobilize and empiric rx antibiotics. Eval with CT Subjective 24 Hr Interval Summary Free Text/Dictation S- reduced pain an some flatus, minimally OOB O- Resp - clear CVS NSR Abd- clean and NT, some distension Ext NT no edema A- doing reasonably well P- mobilize and empiric rx antibiotics. Eval with CT. Exam/Review of Systems Vital Signs Vitals Vital Signs Date Time Temp Pulse Resp B/P Pulse Ox O2 Delivery O2 Flow Rate FiO2 06/27/16 08:25 99.5 94 21 117/57 97 Room Air 06/25/16 14:17 2.0 Intake and Output 06/26/16 06/26/16 06/27/16 15:00 23:00 07:00 Intake Total 400 ml 976 ml 1080 ml Output Total 900 ml 1500 ml Balance 400 ml 76 ml -420 ml Results Result Diagram: 06/27/16 0512 06/27/16 0512 Results 24 hrs Laboratory Tests Test 06/27/16 05:12 White Blood Count 22.2 #H Red Blood Count 4.41 # Hemoglobin 10.2 #L Hematocrit 34.1 #L Mean Corpuscular Volume 77.3 L Mean Corpuscular Hemoglobin 23.1 L Mean Corpuscular Hemoglobin Concent 29.9 L Red Cell Distribution Width 27.5 H Platelet Count 272 Mean Platelet Volume 10.5 H Neutrophils % 92.2 H Lymphocytes % 3.4 L Monocytes % 3.2 Eosinophils % 0.2 Basophils % 0.2 Nucleated Red Blood Cells % 0.0 Neutrophils # 20.5 H Lymphocytes # 0.8 Monocytes # 0.7 Eosinophils # 0.1 Basophils # 0.0 Nucleated Red Blood Cells # 0.0 Sodium Level 136 Potassium Level 4.0 Chloride Level 102 Carbon Dioxide Level 25 Anion Gap 13 Blood Urea Nitrogen 2 L Creatinine 0.60 Glucose Level 122 Calcium Level 8.1 L Magnesium Level 2.3 # Medications Medications Current Medications Ondansetron HCl (Zofran Inj) 4 mg Q6H PRN IV NAUSEA AND/OR VOMITING; Start 3/ 23/17 at 20:00 Miscellaneous Information 1 ea NOTE XX ; Start 06/25/16 at 16:30 Nicotine (Nicoderm 14 Mg/ 24hr) 1 patch DAILY TRANSDERM Last administered on 08:50; Admin Dose 1 PATCH; Start 06/26/16 at 09:00 Pantoprazole (Protonix Tab) 40 mg DAILY@06 PO Last administered on 06/27/16 05 :31; Admin Dose 40 MG; Start 06/26/16 at 06:00 Diphenhydramine HCl (Benadryl) 25 mg Q6H PRN IV PRURITUS Last administered on 00:01; Admin Dose 25 MG; Start 06/26/16 at 00:00 Metronidazole (Flagyl) 500 mg Q8 PO Last administered on 06/27/16 14:48; Admin Dose 500 MG; Start 06/26/16 at 22:00 Ferrous Sulfate (Ferrous Sulfate (Ec)) 325 mg DAILY PO ; Start 06/27/16 at 09:00 Ascorbic Acid (Vitamin C) 500 mg DAILY PO ; Start 06/27/16 at 09:00 Meperidine HCl (Demerol) 75 mg Q3H PRN IV Pain; Start 06/27/16 at 08:00 Levofloxacin (Levaquin) 500 mg DAILY@06 PO ; Start 06/28/16 at 06:00 Oxycodone/ Acetaminophen (Percocet (5/ 325)) 1 tab Q3H PRN PO PAIN LEVEL 7-10 Last administered on 06/27/16 16:51; Admin Dose 1 TAB; Start 06/27/16 at 14:00 KARLOS CHANCE MD Jun 27, 2016 18:35
[2016-06-27 20:00] VITALS: BP 105/54; PULSE 84; RESP 19
[2016-06-27] MEDS ORDERED: metroNIDAZOLE 500 MG TAB PO SCH (21:00)
[2016-06-28] MEDS: OXYCODONE/ACETAMINOPHEN (5/325) TAB PO PRN ×5 (03:49→20:09)
[2016-06-28] MEDS: PANTOPRAZOLE (EC) 40 MG TAB PO SCH (05:18)
[2016-06-28] MEDS ORDERED: LEVOFLOXACIN 500 MG TAB PO SCH (06:00)
[2016-06-28 06:05] LABS: ADD SCAN DIFF NO
[2016-06-28 06:12] LABS: ABNORMAL IP MESSAGE 1; BASOPHILS % 0.2 % (0.0-2.0); EOSINOPHILS # 0.1 10^3/ul (0.0-0.5); HEMATOCRIT 25.4 % (37.0-47.0); HEMOGLOBIN 7.6 g/dl (12.0-16.0); LYMPHOCYTES # 0.6 10^3/ul (0.8-2.9); LYMPHOCYTES % 4.6 % (15.0-51.0); MEAN CORPUSCULAR HEMOGLOBIN 22.8 pg (29.0-33.0); MEAN CORPUSCULAR HGB CONC 29.9 g/dl (32.0-37.0); MEAN CORPUSCULAR VOLUME 76.3 fl (82.0-101.0); MEAN PLATELET VOLUME 9.9 fl (7.4-10.4); MONOCYTE # 0.6 10^3/ul (0.3-0.9); MONOCYTES % 4.8 % (0.0-11.0); NEUTROPHIL # 10.6 10^3/ul (1.6-7.5); NEUTROPHILS % 88.7 % (39.0-77.0); PLATELET COUNT 288 10^3/UL (140-415); RED BLOOD COUNT 3.33 10^6/ul (4.20-5.40); RED CELL DISTRIBUTION WIDTH 27.6 % (11.5-14.5); WHITE BLOOD COUNT 11.9 10^3/ul (4.8-10.8)
[2016-06-28 06:23] LABS: POTASSIUM 3.6 mmol/L (3.5-5.1)
[2016-06-28 06:25] LABS: CREATININE 0.57 mg/dl (0.44-1.00)
[2016-06-28 06:26] LABS: CALCIUM 7.8 mg/dl (8.4-10.2)
[2016-06-28] MEDS: metroNIDAZOLE 500 MG TAB PO SCH ×3 (06:40→22:00)
[2016-06-28 08:18] VITALS: BP 119/69; RESP 21
[2016-06-28] MEDS: NICOTINE (14 MG/24 HR) PATCH TRANSDERM SCH (09:00)
[2016-06-28] MEDS: ASCORBIC ACID 500 MG TAB PO SCH (09:39)
[2016-06-28] MEDS: FERROUS SULFATE (EC) 325 MG TAB PO SCH (09:39)
[2016-06-28 10:25] LABS: ADD SCAN DIFF NO
[2016-06-28 10:34] LABS: ABNORMAL IP MESSAGE 1; BASOPHILS % 0.2 % (0.0-2.0); EOSINOPHILS # 0.2 10^3/ul (0.0-0.5); EOSINOPHILS % 1.3 % (0.0-7.0); HEMATOCRIT 26.7 % (37.0-47.0); LYMPHOCYTES # 0.8 10^3/ul (0.8-2.9); LYMPHOCYTES % 6.7 % (15.0-51.0); MEAN CORPUSCULAR HEMOGLOBIN 23.1 pg (29.0-33.0); MEAN CORPUSCULAR VOLUME 76.9 fl (82.0-101.0); MEAN PLATELET VOLUME 10.4 fl (7.4-10.4); MONOCYTE # 0.6 10^3/ul (0.3-0.9); MONOCYTES % 4.6 % (0.0-11.0); NEUTROPHILS % 86.8 % (39.0-77.0); PLATELET COUNT 336 10^3/UL (140-415); RED BLOOD COUNT 3.47 10^6/ul (4.20-5.40); RED CELL DISTRIBUTION WIDTH 27.8 % (11.5-14.5); WHITE BLOOD COUNT 12.6 10^3/ul (4.8-10.8)
--- NOTE | 2016-06-28 12:57 | PN ---
Date/Time of Note Date/Time of Note DATE: 06/28/16 TIME: 12:56 Assessment/Plan VTE Prophylaxis VTE Prophylaxis Intervention: SCD's Lines/Catheters IV Catheter Type (from [facility]): [place] Urinary Cath still in place: No Assessment/Plan Chief Complaint/Hosp Course ASSESSMENT AND PLAN: 1. Uterine fibroid. The patient is status post total abdominal hysterectomy with salpingo-oophorectomy. Continue post-surgical care. Pain medication 2. Anemia, likely secondary to continuous menorrhagia secondary to uterine fibroids. The patient is status post transfusion of 3 units of packed red blood cells. Stable, continue ferrous sulfate 3. History of nicotine dependency. Started the patient on nicotine patch. 4. Leukocytosis. This is likely reactive postoperatively. The patient was treated with cefazolin during the course of surgery. Continue Levaquin. Follow CBC in a.m. 5. Ileus. Continue Levaquin and start Flagyl 6. For deep vein thrombosis prophylaxis, on sequential compression devices follow general surgery recommendation for start of pharmacology DVT prophylaxis. 7. For gastrointestinal prophylaxis, place the patient on Protonix. We will continue to monitor patient closely. Further recommendations, management and treatment as per clinical course. Problems: Subjective 24 Hr Interval Summary Free Text/Dictation Patient continues to complain of having abdominal pain and distention Tolerating clear liquid diet No nausea vomiting diarrhea Difficulty with ambulation secondary to pain Exam/Review of Systems Vital Signs Vitals Vital Signs Date Time Temp Pulse Resp B/P Pulse Ox O2 Delivery O2 Flow Rate FiO2 06/28/16 08:18 98.2 83 21 119/69 98 06/27/16 20:00 Room Air 06/25/16 14:17 2.0 Intake and Output 06/27/16 06/27/16 06/28/16 15:00 23:00 07:00 Intake Total 850 ml 400 ml 480 ml Balance 850 ml 400 ml 480 ml Exam General: The patient is well-developed, Not in acute distress. HEENT: Atraumatic, normocephalic. The pupils are equal and round . Neck: Supple with full range of motion. Chest: Normal expansion of the thorax during inspiration Lungs: Clear to auscultation bilaterally Heart: Normal S1-S2, Regular rhythm and rate. Abdomen: Soft , minimally tender, minimally distended , bowel sounds are present. Surgical site is dry and clean Extremities: Normal to inspection, no edema no cyanosis Neurologic: Normal mental status,The patient is awake, alert and oriented . Results Result Diagram: 06/28/16 0935 06/28/16 0542 Results 24 hrs Laboratory Tests Test 06/28/16 05:42 06/28/16 09:35 White Blood Count 11.9 #H 12.6 H Red Blood Count 3.33 #L 3.47 L Hemoglobin 7.6 #L 8.0 L Hematocrit 25.4 #L 26.7 L Mean Corpuscular Volume 76.3 L 76.9 L Mean Corpuscular Hemoglobin 22.8 L 23.1 L Mean Corpuscular Hemoglobin Concent 29.9 L 30.0 L Red Cell Distribution Width 27.6 H 27.8 H Platelet Count 288 336 Mean Platelet Volume 9.9 10.4 Neutrophils % 88.7 H 86.8 H Lymphocytes % 4.6 L 6.7 L Monocytes % 4.8 4.6 Eosinophils % 1.0 1.3 Basophils % 0.2 0.2 Nucleated Red Blood Cells % 0.0 0.0 Neutrophils # 10.6 H 11.0 H Lymphocytes # 0.6 L 0.8 Monocytes # 0.6 0.6 Eosinophils # 0.1 0.2 Basophils # 0.0 0.0 Nucleated Red Blood Cells # 0.0 0.0 Sodium Level 132 L Potassium Level 3.6 Chloride Level 101 Carbon Dioxide Level 26 Anion Gap 9 Blood Urea Nitrogen 8 Creatinine 0.57 Glucose Level 118 Calcium Level 7.8 L Magnesium Level 2.0 Medications Medications Current Medications Ondansetron HCl (Zofran Inj) 4 mg Q6H PRN IV NAUSEA AND/OR VOMITING; Start at 20:00 Miscellaneous Information 1 ea NOTE XX ; Start 06/25/16 at 16:30 Nicotine (Nicoderm 14 Mg/ 24hr) 1 patch DAILY TRANSDERM Last administered on 08:50; Admin Dose 1 PATCH; Start 06/26/16 at 09:00 Pantoprazole (Protonix Tab) 40 mg DAILY@06 PO Last administered on 06/28/16 05 :18; Admin Dose 40 MG; Start 06/26/16 at 06:00 Diphenhydramine HCl (Benadryl) 25 mg Q6H PRN IV PRURITUS Last administered on 00:01; Admin Dose 25 MG; Start 06/26/16 at 00:00 Metronidazole (Flagyl) 500 mg Q8 PO Last administered on 06/28/16 06:40; Admin Dose 500 MG; Start 06/26/16 at 22:00 Ferrous Sulfate (Ferrous Sulfate (Ec)) 325 mg DAILY PO Last administered on 09:39; Admin Dose 325 MG; Start 06/27/16 at 09:00 Ascorbic Acid (Vitamin C) 500 mg DAILY PO Last administered on 06/28/16 09:39 ; Admin Dose 500 MG; Start 06/27/16 at 09:00 Meperidine HCl (Demerol) 75 mg Q3H PRN IV Pain; Start 06/27/16 at 08:00 Levofloxacin (Levaquin) 500 mg DAILY@06 PO Last administered on 06/28/16 05:18 ; Admin Dose 500 MG; Start 06/28/16 at 06:00 Oxycodone/ Acetaminophen (Percocet (5/ 325)) 1 tab Q3H PRN PO PAIN LEVEL 7-10 Last administered on 06/28/16 12:49; Admin Dose 1 TAB; Start 06/27/16 at 14:00 ARMANDO GONZALEZ MD Jun 28, 2016 12:57
[2016-06-28] MEDS ORDERED: Oxycodone/Acetamin (5/325) PO (13:08)
[2016-06-28] MEDS ORDERED: Nicotine (14 Mg/24 Hr) TRANSDERM (13:08)
[2016-06-28] MEDS ORDERED: ASC500 PO (13:08)
[2016-06-28] MEDS ORDERED: PANT40TA4 PO (13:08)
[2016-06-28] MEDS ORDERED: FERR325C PO (13:08)
[2016-06-28] MEDS ORDERED: LEVO500T10 PO (13:08)
[2016-06-28] MEDS ORDERED: METR500T14 PO (13:08)
[2016-06-28] MEDS ORDERED: ONDA4TAB8 PO (13:08)
[2016-06-28] MEDS ORDERED: PHYTONADIONE 10 MG/ML INJ IM ONE (14:30)
[2016-06-28] MEDS ORDERED: DIPHENHYDRAMINE 25 MG CAP PO ONE (17:00)
[2016-06-28] MEDS ORDERED: ACETAMINOPHEN 325 MG TAB PO ONE (17:00)
--- NOTE | 2016-06-28 19:05 | DS ---
DATE OF ADMISSION: 06/25/2016 DATE OF DISCHARGE: 06/28/2016 ADMITTING PHYSICIAN: Juan Rincon M.D. [employer]AND [employer]IVATION MANAGER: Medical team. PROCEDURES: Total laparoscopic hysterectomy with right salpingo-oophorectomy with bilateral uretera l dissection with repositioning, bilateral retroperitoneal artery ligation, appendectomy and enterol ysis. DISCHARGE DIAGNOSES: 1. Uterine fibroid with menorrhagia, negative endometrial biopsy. 2. Pelvic pain. 3. Hypervascularity with vascular abnormality. 4. ____ 5. Ileus. 6. Leukocytosis, resolved. 7. Nicotine dependency. The patient was started on nicotine patch, smoking cessation was advised. 8. Anemia, status post transfusion of total of 4 units of packed red blood cells. The patient was started on ferrous sulfate. LABS: WBC 12.6, hemoglobin 8.0, hematocrit 26.7, platelets 336. Sodium 132, potassium 3.6, chlorid e 101, bicarbonate 26, BUN 9, creatinine 0.57, glucose 118, calcium 7.8, magnesium 2.0. Total iron 11, TIBC 324, iron saturation 3, ferritin 12.2. HOSPITAL COURSE: This is a pleasant 45-year-old G7, P2, ectopic 1, 3, miscarriage 1, with symptomatic fibroid, anemia, who has been having vaginal bleeding and has been seen and evaluated [facility] after having the imaging and found to have a ____-wee k size uterus secondary to fibroids. After discussing the mode of treatment, the patient was decide d to proceed with surgical intervention. After discussing the risks and the benefits of the surgery and signed a consent, the patient was taken to OR for total laparoscopic hysterectomy with right sa lpingo-oophorectomy, bilateral ureteral dissection and repositioning and bilateral retroperitoneal u terine artery ligation, appendectomy, and enterolysis. The patient was started on cefazolin, IV flui d, was taken to recovery room in stable condition which she was admitted to med/surg. The patient w as continued on IV fluid, IV pain medication and oral pain medication. She had some postop pain and a CT abdomen and pelvis was obtained which showed small volume of free fluid in the pelvis, scatter ed and a small foci of air and diffuse pelvic soft tissue edema. Findings may be a postoperatively ____ infection process, is difficult to exclude, no mature abscess and multiple mildly distended heriberto e fluid-filled loop in the small-bowel likely reflecting ileus. The patient's IV fluid was transiti oned to Levaquin and Flagyl. The patient's IV antibiotics were transitioned to oral antibiotics, sh candis has been able to tolerate this morning. The patient was found to have hemoglobin of 8.0, hematocr it 26.7 from her hemoglobin of 7.6 and 25.4 from the day before. The patient has been typed and crown pouncer ssed and will be transfused 1 unit of packed red blood cells as per Dr. Rincon's request and she w ill be discharged home after his clearance. CONDITION: Stable. Dictated By: ARMANDO ALEXIS/JULIA Conf#: [id number] DID#: [id number]
[2016-06-28] MEDS ORDERED: FUROSEMIDE 20 MG INJ IV ONE (20:30)
[2016-06-28 20:53] VITALS: BP 132/74; RESP 20
== END 2016-06-28 23:35 | disposition home or self-care (01) | DRG 742 ==
LOC: REC 05:25 → PP2 18:41
PROC: 0UT94ZZ Resection of Uterus, Percutaneous Endoscopic Approach (ICD-10-PCS; principal; 2016-06-26)
PROC: 0UTC4ZZ Resection of Cervix, Percutaneous Endoscopic Approach (ICD-10-PCS; 2016-06-26)
PROC: 0UT54ZZ Resection of Right Fallopian Tube, Percutaneous Endoscopic Approach (ICD-10-PCS; 2016-06-26)
PROC: 0UT04ZZ Resection of Right Ovary, Percutaneous Endoscopic Approach (ICD-10-PCS; 2016-06-26)
PROC: 0UN54ZZ Release Right Fallopian Tube, Percutaneous Endoscopic Approach (ICD-10-PCS; 2016-06-26)
PROC: 0DTJ4ZZ Resection of Appendix, Percutaneous Endoscopic Approach (ICD-10-PCS; 2016-06-26)
PROC: 0DNJ4ZZ Release Appendix, Percutaneous Endoscopic Approach (ICD-10-PCS; 2016-06-26)
DX: D25.9 Leiomyoma of uterus, unspecified (principal); K56.7 Ileus, unspecified; D64.9 Anemia, unspecified; F17.200 Nicotine dependence, unspecified, uncomplicated; Z88.5 Allergy status to narcotic agent; Z88.0 Allergy status to penicillin; Z88.8 Allergy status to other drugs, medicaments and biological substances
CPT/HCPCS: 36430; 74178; 80048; 80053; 81001; 81003; 82728; 83540; 83735; 84703; 85025; 85610; 85730; 86850; 86900; 86901; 86920; 87086; 88302; 88304; 88307; J1940; J0690; J1200; J1885; J1956; J2060; J2175; J2250; J2274; J2405; J2710; J3010; J3475; J3480; P9016; Q9967